=== PATIENT | female | born 1935 | race Caucasian/White ===

== ENCOUNTER 2017-12-24 12:50 | Outpatient (CLI) | payer MEDICARE ==
--- NOTE | 2017-12-24 13:18 | ULT ---
RENAL ULTRASOUND: HISTORY: Microhematuria. FINDINGS: Real-time imaging of the right and left kidneys was performed. The right kidney measures 10, and the left kidney measures 10.2 cm in size. There are no signs of cyst, mass, or obstruction. The bladde r is incompletely distended at the time of this exam. IMPRESSION: Unremarkable renal ultrasound. POS: [facility]
== END 2017-12-24 12:51 | disposition home or self-care (01) ==
LOC: BICULT 12:50
PROVIDERS: ATTEND Urology
DX: R31.29 Other microscopic hematuria (principal)
CPT/HCPCS: 76770

== ENCOUNTER 2018-09-22 11:11 | Emergency (ER) | payer MEDICARE | END 2018-09-22 11:40 | disposition home or self-care (01) | LOC: SCSER 11:11 | DX: R21 Rash and other nonspecific skin eruption (principal); F32.9 Major depressive disorder, single episode, unspecified; E03.9 Hypothyroidism, unspecified; I10 Essential (primary) hypertension; E78.5 Hyperlipidemia, unspecified; K50.90 Crohn's disease, unspecified, without complications; Z79.899 Other long term (current) drug therapy | CPT/HCPCS: 99282 ==

== ENCOUNTER 2020-04-16 12:20 | Inpatient (IN) | payer MEDICARE ==
[2020-04-16 13:28] LABS: #Basophils 0.1 thou/uL (0.0-0.2); #Eosinphils 0.1 thou/uL (0.0-0.7); #Lymphocytes 1.6 thou/uL (1.20-3.40); #Monocytes 1.2 thou/uL (0.11-0.59); #Neutrophils 8.3 thou/uL (1.40-6.50); %Basophils 0.5 % (0.0-1.0); %Eosinophils 0.5 % (0.0-10.0); %Lymphocytes 14.6 % (21.0-51.0); %Monocytes 10.5 % (0.0-10.0); %Neutrophils 73.9 % (42.0-75.0); Hemoglobin 12.7 g/dL (12.0-16.0); Mean Corpuscular Hemoglobin 29.1 pg (27.0-31.0); Mean Corpuscular Volume 90.9 fL (78.0-98.0); Mean Platelet Volume 7.9 fL (7.4-10.4); Platelet Count 167 thou/uL (130-400); RBC Distribution Width 11.7 % (11.5-14.5); Red Blood Cell (RBC) Count 4.36 mill/uL (4.20-5.40); White Blood Cell (WBC) Count 11.2 thou/uL (4.8-10.8)
[2020-04-16] MEDS ORDERED: Aspirin Chewable 81 MG TAB ONE (13:52)
[2020-04-16 14:07] LABS: ALT (SGPT) 13 U/L (8-55); AST (SGOT) 22 U/L (5-34); Albumin 3.8 g/dL (3.4-4.8); Alkaline Phosphatase 85 U/L (40-110); Anion Gap 14 mmol/L (10-20); BUN (Urea Nitrogen) 17 mg/dL (9.8-20.1); Bilirubin, Total 0.7 mg/dL (0.2-1.2); CK (CPK) 47 U/L (29-168); Calc. Creatinine Clearance 0 mL/min (70-130); Calcium 9.2 mg/dL (7.8-10.44); Carbon Dioxide 28 mmol/L (23-31); Chloride 100 mmol/L (98-107); Globulin 3.6 g/dL (2.4-3.5); Glucose 99 mg/dL (83-110); Lipase 138 U/L (8-78); Potassium 3.7 mmol/L (3.5-5.1); Protein, Total 7.4 g/dL (6.0-8.3); Sodium 138 mmol/L (136-145)
--- NOTE | 2020-04-16 14:09 | RAD ---
PORTABLE CHEST 1 VIEW: Date: 04/16/2020 Time: 1344 hours HISTORY: Chest pain. Shortness of breath. COMPARISON: None. FINDINGS/IMPRESSION: The heart size is normal. The aorta is tortuous. No lobar consolidation, pneumothoraces, or pleural e ffusions are seen. A small calcified granuloma is seen in the right lung base. Hazy opacities are not ed in the right lung. In the appropriate clinical setting, this may sales representative uniforms of viral pneumonia . POS: [facility]
[2020-04-16] MEDS ORDERED: Furosemide 40 MG/4 ML VIAL ONE (14:17)
[2020-04-16] MEDS ORDERED: Nitroglycerin 2% Ointment 1 INCH/1 GM Packet ONE (14:17)
[2020-04-16 15:25] LABS: Bacteria/HPF None Seen HPF (None Seen); Bilirubin Negative (Negative); Blood, Urine Trace (Negative); Clarity Clear (Clear); Glucose, Urine (Dipstick) Normal (Negative); Ketone, Urine Negative (Negative); Leukocyte 250 Leu/uL (Negative); Nitrite Negative (Negative); Protein, Urine (Dipstick) Negative (Neg-Trace); RBC/HPF 0-3 HPF (0-3); Specific Gravity, Urine 1.012 (1.002-1.036); Squamous Epithelial 0-3 HPF (0-3); Urobilinogen Normal mg/dL (Less than 2)
--- NOTE | 2020-04-16 15:42 | PDOC.HHP ---
Hospitalist HPI - History of Present Illness Chest pain History of Present Illness: Ms. Scott is an 85-year-old female with past medical history of coronary artery disease,, hypertension, hyperlipidemia, hypothyroidism, Crohn's disease, status post right CEA who presents for chest pain. Patient reports that over the past 2 weeks that she has had increasing frequency of chest pain episodes. Pain is at the left border of her rib and worse with deep inspiration. She reports pain lasts approximately 20 to 30 minutes and is improved when she takes her nitroglycerin. She reports shortness of breath during these episodes and also when exerting herself. She denies any shortness of breath at rest. She denies cough, fevers, chills. Denies abdominal pain, nausea vomiting diarrhea other than what is normal for her for her Crohn's disease. Denies melena, hematochezia. Patient follows with Dr. Garnett of cardiology. Emergency room initial vital signs 146/71, 56, 17, 99% on room air. Initial tr oponin 0 0.010. EKG showed sinus bradycardia with no ST changes. H/H 12.7/39.7. WBC 11.2. BUN/CR 17/0.82. Sodium 138, potassium 3.7. Hospitalist ROS - Review of Systems Constitutional: denies: fever, chills, sweats, weakness, malaise, other Eyes: denies: pain, vision change, conjunctivae inflammation, eyelid inflammation, redness, other ENT: denies: ear pain, ear discharge, nose pain, nose discharge, nose congestion, mouth pain, mouth swelling, throat pain, throat swelling, other Respiratory: reports: shortness of breath, SOB with excertion. denies: cough, dry, hemoptysis, pleuritic pain, sputum, wheezing, other Cardiovascular: reports: chest pain. denies: palpitations, orthopnea, paroxysmal noc. dyspnea, edema, light headedness, other Gastrointestinal: denies: nausea, vomiting, abdominal pain, diarrhea, constipation, melena, hematochezia, other Genitourinary: denies: dysuria, frequency, incontinence, hematuria, retention, other Musculoskeletal: denies: neck pain, shoulder pain, arm pain, back pain, hand pain, leg pain, foot pain, other Skin: denies: rash, lesions, charbel, bruising, other Neurological: denies: weakness, numbness, incoordination, change in speech, confusion, seizures, other - Medication Medications: Medications include Aspirin Atorvastatin Lisinopril Nitrostat No known allergies Hospitalist History - Past Medical History Other Medical History: Past medical history includes Hypertension Hyperlipidemia Hypothyroidism Crohn's disease - Past Surgical History Other Surgical History: Past surgical history includes Right CEA Appendectomy Partial thyroidectomy Hysterectomy - Family History Other Family History: Endorses family history of cardiac disease - Social History Smoking Status: Never smoker Alcohol: reports: None Drugs: reports: none Living Situation: With Family Activity level: independent ambulation - Exam Eye: PERRL, anicteric sclera ENT: normocephalic atraumatic, no oropharyngeal lesions, moist mucosa Neck: supple, symmetric, no JVD, no thyromegaly, no lymphadenopathy, no carotid bruit Heart: RRR, no murmur, no gallops, no rubs, normal peripheral pulses Respiratory: CTAB, no wheezes, no rales, no ronchi, normal chest expansion, no tachypnea, normal percussion Gastrointestinal: soft, non-tender, non-distended, normal bowel sounds, no palpable masses, no hepatomegaly, no splenomegaly, no bruit Extremities: no cyanosis, no clubbing, no edema Skin: normal turgor, no lesions, no rashes Neurological: cranial nerve grossly intact, normal sensation to touch, no weakness, no focal deficits, no new deficit Musculoskeletal: normal tone, normal strength, no muscle wasting Psychiatric: normal affect, normal behavior, A&O x 3 Hospitalist Results - Labs Result Diagrams: 04/16/20 13:15 04/16/20 13:15 Lab results: WBC 11.2 thou/uL (4.8-10.8) H 04/16/20 13:15 Hgb 12.7 g/dL (12.0-16.0) 04/16/20 13:15 Hct 39.7 % (36.0-47.0) 04/16/20 13:15 MCV 90.9 fL (78.0-98.0) 04/16/20 13:15 Plt Count 167 thou/uL (130-400) 04/16/20 13:15 Neutrophils % 73.9 % (42.0-75.0) 04/16/20 13:15 Sodium 138 mmol/L (136-145) 04/16/20 13:15 Potassium 3.7 mmol/L (3.5-5.1) 04/16/20 13:15 Chloride 100 mmol/L (98-107) 04/16/20 13:15 Carbon Dioxide 28 mmol/L (23-31) 04/16/20 13:15 BUN 17 mg/dL (9.8-20.1) 04/16/20 13:15 Creatinine 0.82 mg/dL (0.6-1.1) 04/16/20 13:15 Glucose 99 mg/dL (83-110) 04/16/20 13:15 Calcium 9.2 mg/dL (7.8-10.44) 04/16/20 13:15 Total Bilirubin 0.7 mg/dL (0.2-1.2) 04/16/20 13:15 AST 22 U/L (5-34) 04/16/20 13:15 ALT 13 U/L (8-55) 04/16/20 13:15 Alkaline Phosphatase 85 U/L (40-110) 04/16/20 13:15 Creatine Kinase 47 U/L (29-168) 04/16/20 13:15 Troponin I Less than 0.010 ng/mL (< 0.028) 04/16/20 13:15 B-Natriuretic Peptide 272.6 pg/mL (0-100) H 04/16/20 13:15 Serum Total Protein 7.4 g/dL (6.0-8.3) 04/16/20 13:15 Albumin 3.8 g/dL (3.4-4.8) 04/16/20 13:15 Lipase 138 U/L (8-78) H 04/16/20 13:15 Urine Ketones Negative mg/dL (Negative) 04/16/20 15:07 Urine Blood Trace (Negative) A 04/16/20 15:07 Urine Nitrite Negative (Negative) 04/16/20 15:07 Ur Leukocyte Esterase 250 [place]w/uL (Negative) A 04/16/20 15:07 Urine RBC 0-3 HPF (0-3) 04/16/20 15:07 Urine WBC 7-10 HPF (0-3) A 04/16/20 15:07 Ur Squamous Epith Cells 0-3 HPF (0-3) 04/16/20 15:07 Urine Bacteria None Seen HPF (None Seen) 04/16/20 15:07 Hospitalist H&P A/P - Plan Plan: Chest Pain 85-year-old female possible history hypertension, hyperlipidemia, hypothyroidism, Crohn's, status post right CEA presents with 2 weeks of worsening chest pain. Episodes last approximately 20 to 30 minutes or and are relieved by nitroglycerin. Initial troponin 0 0.010, EKG with no ischemic changes. Patient reports last stress test was approximately 2 years ago. She f tamirs with Dr. Llanes cardiology and request to see him if possible during admission. Will admit patient for chest pain rule out. Plan Trend troponin Telemetry monitoring N.p.o. at midnight for stress test ASA, statin TSH, magnesium, calcium Cardiology consult Hypertension Continue home atenolol. Hold if stress test in am. Hyperlipidemia Continue home atorvastatin Status post CEA Status post CEA with Dr. Younger in 2019. Patient takes daily aspirin. We will continue. Anxiety/depression Continue home SSRI once dosage confirmed. Hypothyroidism Continue home levothyroxine Crohn's disease History of Crohn's disease followed by Dr. Phelan. Patient reports she is on a weekly medication but unsure the name. Denies any abdominal pain, nausea pain vomiting diarrhea at this time. DVT prophylaxisLovenox DNR Case discussed with attending physician, Dr. Cook.
[2020-04-16] MEDS ORDERED: Acetaminophen 325 MG TAB PO PRN (15:47)
[2020-04-16] MEDS ORDERED: Acetaminophen 650 MG Suppository PR PRN (15:47)
[2020-04-16] MEDS ORDERED: Aspirin 325 MG TAB PO SCH (16:00)
[2020-04-16 16:53] LABS: Troponin I Less than 0.010 ng/mL (< 0.028)
[2020-04-16 19:44] LABS: Troponin I Less than 0.010 ng/mL (< 0.028)
[2020-04-16 22:45] LABS: SARS-CoV-2 PCR by NAA Not Detected (NotDetected)
[2020-04-16] MEDS: Atorvastatin Calcium 20 MG TAB PO SCH (22:48)
[2020-04-16] MEDS: Nitroglycerin 2% Ointment 1 INCH/1 GM Packet TOP SCH (22:48)
[2020-04-17 04:45] LABS: #Basophils 0.1 thou/uL (0.0-0.2); #Eosinphils 0.1 thou/uL (0.0-0.7); #Lymphocytes 2.2 thou/uL (1.20-3.40); #Monocytes 1.2 thou/uL (0.11-0.59); #Neutrophils 4.9 thou/uL (1.40-6.50); %Basophils 0.8 % (0.0-1.0); %Eosinophils 1.4 % (0.0-10.0); %Lymphocytes 25.9 % (21.0-51.0); %Monocytes 14.2 % (0.0-10.0); %Neutrophils 57.7 % (42.0-75.0); Hemoglobin 11.6 g/dL (12.0-16.0); Mean Corpuscular HGB CONC 33.8 g/dL (32.0-36.0); Mean Corpuscular Hemoglobin 30.5 pg (27.0-31.0); Mean Corpuscular Volume 90.2 fL (78.0-98.0); Mean Platelet Volume 8.5 fL (7.4-10.4); Platelet Count 149 thou/uL (130-400); RBC Distribution Width 11.6 % (11.5-14.5); Red Blood Cell (RBC) Count 3.81 mill/uL (4.20-5.40); White Blood Cell (WBC) Count 8.6 thou/uL (4.8-10.8)
[2020-04-17 05:21] LABS: Anion Gap 16 mmol/L (10-20); BUN (Urea Nitrogen) 21 mg/dL (9.8-20.1); Calc. Creatinine Clearance 0 mL/min (70-130); Calcium 9.2 mg/dL (7.8-10.44); Carbon Dioxide 27 mmol/L (23-31); Cardiac Risk 3.3 (Less than 4.5); Chloride 102 mmol/L (98-107); Cholesterol 119 mg/dl (< 200 Desired); Glucose 96 mg/dL (83-110); HDL Cholesterol 36 mg/dL (>60 Neg Risk); LDL Cholesterol, Calculated 59 mg/dL; Sodium 141 mmol/L (136-145); Triglycerides 119 mg/dL (Less than 150)
[2020-04-17] MEDS: Levothyroxine Sodium 112 MCG TAB PO SCH (06:30)
[2020-04-17] MEDS: Nitroglycerin 2% Ointment 1 INCH/1 GM Packet TOP SCH ×3 (06:31→21:04)
[2020-04-17] MEDS: Atorvastatin Calcium 20 MG TAB PO SCH ×2 (08:11→21:03)
[2020-04-17] MEDS: Aspirin Chewable 81 MG TAB PO SCH (08:12)
[2020-04-17] MEDS ORDERED: Enoxaparin Sodium 40 MG/0.4 ML SYRINGE SC SCH (09:00)
[2020-04-17] MEDS ORDERED: ADENOSINE 60 MG/20 ML VIAL ONE (09:46)
--- NOTE | 2020-04-17 11:12 | NM ---
Radionucleotide stress and rest myocardial perfusion scan with CT attenuation correction and SPECT im aging Left ventricular wall motion evaluation and ejection fraction HISTORY: Chest pain. FINDINGS: Adenosine protocol. Heterogeneous uptake of radiotracer throughout the left ventricular lucas cardium on the stress and rest images. Subjectively, there is diminished uptake involving the distal portion of the anteroseptal wall. Quantitative analysis, however, does not confirm this concer n. There is also good thickening and wall motion arguing against an infarct. Probable breast attenuation. Diaphragmatic attenuation also evident. No reversibility. QGS analysis of gated SPECT images shows no focal wall motion abnormalities. Ejection fraction calcul ated at greater than 80%. IMPRESSION : No evidence of acute ischemia. Normal LVEF.
[2020-04-17] MEDS: cefTRIAXone\\ROCEPHIN 1 GM in Sodium Chloride 0.9% 100 ML IVPB SCH (13:00)
--- NOTE | 2020-04-17 14:34 | PDOC.HOSPP ---
- Subjective Encounter Date: 04/17/20 Encounter Time: 14:33 Subjective: This is an 85-year-old patient of Dr. LOWERY from cardiology services who presented to the hospital with couple weeks onset of chest pain. She reports waxing and waning chest discomfort. The pain was relieved with nitroglycerin. She finally decided to present today for further evaluation. She has had a Cardiolite stress test that did not show any exercise-induced ischemia her marketing teacher is yet to see her. We will follow up with her marketing teacher recommendations. - Objective Vital Signs & Weight: Vital Signs (12 hours) Temp Pulse Resp BP Pulse Ox 04/17/20 11:00 97.7 F 77 16 132/60 99 04/17/20 07:53 96 04/17/20 07:20 98.0 F 56 L 16 109/53 L 96 04/17/20 04:00 99.1 F 54 L 16 109/56 L 99 Weight Weight 129 lb 4.55 oz I&O: 04/16/20 04/17/20 04/18/20 06:59 06:59 06:59 Intake Total 250 Output Total 300 Balance -50 Result Diagrams: 04/17/20 03:52 04/17/20 03:52 Radiology Reviewed by me: Yes EKG Reviewed by me: Yes Hospitalist ROS - Review of Systems ROS unobtainable: due to mental status Constitutional: reports: sweats, weakness Cardiovascular: reports: chest pain, palpitations Gastrointestinal: reports: nausea Neurological: reports: weakness - Medication Medications: Active Medications Generic Name Dose Route Start Last Admin Trade Name Freq PRN Reason Stop Dose Admin Aspirin 81 mg 04/17/20 09:00 04/17/20 08:12 Aspirin Chewable 81 Mg Tab PO 81 mg DAILY REMBERTO Administration Atorvastatin Calcium 20 mg 04/16/20 21:00 04/17/20 08:11 Atorvastatin Calcium 20 Mg Tab PO 20 mg BID REMBERTO Administration Enoxaparin Sodium 40 mg 04/17/20 09:00 04/17/20 08:12 Enoxaparin Sodium 40 Mg/0.4 Ml Syringe SC 40 mg 0900 REMBERTO Administration Ceftriaxone Sodium 1 gm/ 100 mls @ 200 mls/hr 04/17/20 13:00 04/17/20 13:00 Sodium Chloride IVPB 100 mls 1300 REMBERTO Administration Levothyroxine Sodium 112 mcg 04/17/20 06:00 04/17/20 06:30 Levothyroxine Sodium 112 Mcg Tab PO 112 mcg 0600 REMBERTO Administration Nitroglycerin 0.5 inch 04/16/20 22:00 04/17/20 13:00 Nitroglycerin 2% Ointment 1 Inch/1 Gm Packet TOP 0.5 inch Q8HR REMBERTO Administration Pantoprazole Sodium 40 mg 04/17/20 09:00 04/17/20 08:11 Pantoprazole 40 Mg Tab PO 40 mg QAM REMBERTO Administration Sodium Chloride 10 ml 04/16/20 15:47 04/16/20 22:49 Flush - Normal Saline 10 Ml Syringe IVF 10 ml PRN PRN Administration Saline Flush - Exam General Appearance: awake alert, ill appearing Eye: PERRL, anicteric sclera, scleral icterus ENT: normocephalic atraumatic, no oropharyngeal lesions Neck: supple, symmetric, no thyromegaly, no lymphadenopathy Heart: RRR, no murmur, no gallops, no rubs, normal peripheral pulses Respiratory: CTAB, no wheezes, no rales, no ronchi, normal chest expansion Gastrointestinal: soft, non-tender, non-distended, normal bowel sounds, no palpable masses Psychiatric: normal affect, normal behavior, A&O x 3, oriented to person Hosp A/P (1) Chest pain Code(s): R07.9 - CHEST PAIN, UNSPECIFIED Status: Acute Qualifiers: Chest pain type: chest pain due to myocardial ischemia Ischemic chest pain type: unstable angina pectoris Qualified Code(s): I20.0 - Unstable angina Plan: She reportedly has been having chest pain here for the last 2 weeks that progressively got worse. She had a stress test here that was read as normal. Her marketing teacher is here to visit with her. We will continue current management plan. (2) Hyperlipidemia Code(s): E78.5 - HYPERLIPIDEMIA, UNSPECIFIED Status: Acute Qualifiers: Hyperlipidemia type: mixed hyperlipidemia Qualified Code(s): E78.2 - Mixed hyperlipidemia - Plan old records reviewed/req, PT/OT
[2020-04-17] MEDS ORDERED: Communication Order-Pharmacy FS SCH (19:15)
--- NOTE | 2020-04-17 19:56 | CON ---
DATE OF CONSULTATION: 04/17/2020 REASON FOR CONSULTATION: Chest pain, pressure. HISTORY OF PRESENT ILLNESS: Ms. Irma Villagomez is a very pleasant woman with history of coronary artery disease with recurrent chest pressure and tightness. Ms. Villagomez initially presented with angina in 1993. She was found to have a stenosis in the right coronary artery, which was successfully balloon dilated. She re-presented with chest pain in 2004 and underwent cardiac catheterization and was found to have a 60% to 70% mid LAD with calcification. No obstructive stenosis in the circumflex or right coronary artery. The patient has really done well over the last 16 years, but yesterday, presented with chest pain and pressure at rest, which was prolonged. She is feeling better today. Stress test will be outlined below. ALLERGIES: NONE KNOWN. REVIEW OF SYSTEMS: CONSTITUTIONAL: Positive for some shortness of breath and weakness, but otherwise 12-point review of systems is negative. FAMILY HISTORY: Noncontributory. SOCIAL HISTORY: No alcohol or tobacco. PHYSICAL EXAMINATION: GENERAL: This is a pleasant 85-year-old woman, in no distress. VITAL SIGNS: Blood pressure 124/59, pulse 64 and regular. LUNGS: Clear. CARDIAC: Normal S1, normal S2. There is no murmur, rub, or gallop. ABDOMEN: Soft, nontender. No hepatosplenomegaly. EXTREMITIES: Warm and dry. No clubbing or cyanosis or edema. Good femoral pulses and popliteal pulses bilaterally. Good dorsalis pedis pulse on the right. IMAGING STUDIES: EKG; sinus rhythm with some ST depression, nonspecific in V5, V6 with sinus bradycardia. A stress test was read as no reversible ischemia, but it was noted that she had a fixed defect at the apex. ASSESSMENT: 1. Angina at rest. 2. Previous coronary artery disease with previous stent implantation. RECOMMENDATIONS: 1. In view of the prolonged episode of chest pressure in patient with known coronary artery disease, recommend a cardiac catheterization. Discussed the risk of stroke, heart attack, iodine allergy, interference of blood supply to leg or kidney, stent thrombosis, stent restenosis. The patient understands and wishes to proceed. 2. The patient also appears to have diastolic heart failure. The BNP is 272 with normal ejection fraction. This is diagnostic of diastolic heart failure. 3. Hypercholesterolemia, well controlled. LDL cholesterol is 59, primary hypercholesterolemia. Job ID: [id number]
[2020-04-18] MEDS ORDERED: Sodium Chloride 0.9% 1,000 ML IV SCH (06:00)
[2020-04-18] MEDS: Atorvastatin Calcium 20 MG TAB PO SCH ×2 (06:25→20:59)
[2020-04-18] MEDS: Levothyroxine Sodium 112 MCG TAB PO SCH (06:25)
[2020-04-18] MEDS: Aspirin Chewable 81 MG TAB PO SCH (06:25)
[2020-04-18] MEDS: Nitroglycerin 2% Ointment 1 INCH/1 GM Packet TOP SCH ×3 (06:25→20:59)
[2020-04-18] MEDS ORDERED: Fentanyl 100 MCG/2 ML VIAL ONE (08:06)
[2020-04-18] MEDS ORDERED: Nitroglycerin 100MG/250ML BOT 250 ML ONE (08:18)
[2020-04-18] MEDS ORDERED: Nitroglycerin 0.4 MG TAB (25 Tab Bottle) SL PRN (08:53)
[2020-04-18] MEDS ORDERED: Acetaminophen/Codeine 30-300mg Tablet PO PRN ×2 (08:53)
[2020-04-18] MEDS ORDERED: Sodium Chloride 0.9% 200 ML IV PRN (08:53)
[2020-04-18] MEDS ORDERED: Communication Order-Pharmacy FS SCH (10:35)
--- NOTE | 2020-04-18 11:51 | CON ---
DATE OF CONSULTATION: HISTORY OF PRESENT ILLNESS: This is an 85-year-old female who has a history of coronary artery disease, having undergone a [employer] C[employer] MANAGER of the right coronary artery about 25 years ago. She was re-evaluated several years ago for chest pain and found to have noncritical coronary artery disease, however, was admitted this week with prolonged episode of chest pain with negative cardiac enzyme. Stress test was significant only for fixed apical defect, and catheterization done today showed a heavily calcified right coronary artery with a 99% mid stenosis and then heavily calcified LAD with about 70% stenosis after a sizable diagonal system and then some intramyocardial LAD that was rather small. PAST MEDICAL HISTORY: Significant for: 1. Hypertension. 2. Hypothyroidism. 3. Carotid artery disease. 4. Dyslipidemia. SOCIAL HISTORY: She is a nonsmoker. She lives with a nephew. PAST SURGICAL HISTORY: 1. Right knee replacement. 2. Appendectomy. 3. Hysterectomy. 4. Partial thyroidectomy. 5. Right submandibular gland removal. 6. Most recently about 4 years ago, a right carotid endarterectomy. PHYSICAL EXAMINATION: GENERAL: She is an elderly-appearing lady, height 5 feet 5 inches and weight 129. NECK: I do not appreciate any carotid bruits. LUNGS: Clear to auscultation. CARDIAC: Regular rate and rhythm with a very soft systolic murmur. ABDOMEN: Soft and nontender. EXTREMITIES: She has palpable femoral and popliteal pulses and I do not appreciate any pedal pulses. She has no peripheral edema. LABORATORY VALUES: She has slight anemia. Normal creatinine. Her chest x-ray shows osteopenia, relatively unremarkable. As mentioned, her stress test showed normal ejection fraction with no reversible defects, but distal anterior septal wall with poor uptake and fixed defect. PLAN: At this time is for coronary artery bypass grafting to the distal right coronary artery into the mid or distal LAD, and informed consent has been obtained. Job ID: [id number]
[2020-04-18] MEDS ORDERED: Iopamidol 370 76% 100 ML VIAL ONE (12:19)
[2020-04-18] MEDS: cefTRIAXone\\ROCEPHIN 1 GM in Sodium Chloride 0.9% 100 ML IVPB SCH (13:23)
--- NOTE | 2020-04-18 16:42 | PQF ---
CLINICAL DOCUMENTATION CLARIFICATION FORM: Dear Dr. JUAN COREA Date: 04-18-20 Please exercise your independent, professional judgment in responding to the clarification form. Clinical indicators are provided on the bottom of this form for your review. Please check appropriate box(es): HEART FAILURE: A. ACUITY [ ] Acute [ ] Acute on Chronic [ x] Chronic B. TYPE: [ ] Systolic / HFrEF [ x ] Diastolic / HFpEF [ ] Combined Systolic / Diastolic [ ] Hypertensive Heart Disease : [ ] Other diagnosis [ ] Unable to determine In addition, please specify: Present on Admission (POA): [ x ] Yes [ ] No [ ] Unable to determine For continuity of documentation, please document condition throughout progress notes and discharge summary. Thank You. To be completed by CDI/Coding staff for physician review: CLINICAL INDICATORS - SIGNS / SYMPTOMS / LABS / RESULTS AND LOCATION IN EMR: ER NOTES 04-16-20: WORSENING EXERTIONAL CP AND SOB ER DX 04-16-20: CHEST PAIN R/O OR, CHF CONSULT NOTE DR. LOWERY 04-17-20: PT APPEARS TO HAVE DIASTOLIC HEART FAILURE. THE BNP IS 272 WITH NORMAL EJECTION FRACTION. THIS IS DIAGNOSTIC OF DIASTOLIC HEART FAILURE RISKS FACTORS / RESULTS AND LOCATION IN EMR: H&P 04-16-20: HX CAD, HTN, HYPERLIPIDEMIA TREATMENTS / RESULTS AND LOCATION IN EMR: ER NOTES 04-16-20: [facility] IVP CARDIOLOGY CONSULT 04-17-20 CDS Signature: Cayla Dodson Phone #: [phone] Date: 04-18-20 This is a permanent part of the Medical Record [facility]
--- NOTE | 2020-04-18 17:48 | PDOC.HOSPP ---
- Subjective Encounter Date: 04/18/20 Encounter Time: 17:46 Subjective: Patient had a LHC today and found to have LAD and RCA. disease. CT surgery consulted for CABG considerations. She is chest pain free today. - Objective Vital Signs & Weight: Vital Signs (12 hours) Temp Pulse Resp BP BP BP Pulse Ox 04/18/20 15:22 97.7 F 80 15 140/63 99 04/18/20 11:19 98.2 F 64 16 160/65 H 95 04/18/20 09:05 97.9 F 62 16 133/65 133/65 94 L 04/18/20 07:27 96 04/18/20 07:12 97.6 F 68 16 134/60 99 Weight Admit Weight 129 lb 4.55 oz Weight 129 lb 4.55 oz I&O: 04/17/20 04/18/20 04/19/20 06:59 06:59 06:59 Intake Total 250 820 Output Total 300 Balance -50 820 Result Diagrams: 04/17/20 03:52 04/17/20 03:52 Radiology Reviewed by me: Yes EKG Reviewed by me: Yes Hospitalist ROS - Review of Systems Constitutional: reports: weakness, malaise ENT: reports: ear discharge Cardiovascular: reports: chest pain, palpitations Neurological: reports: weakness - Medication Medications: Active Medications Generic Name Dose Route Start Last Admin Trade Name Freq PRN Reason Stop Dose Admin Acetaminophen 650 mg 04/16/20 15:47 04/17/20 16:47 Acetaminophen 325 Mg Tab PO 650 mg Q4H PRN Administration Headache/Fever/Mild Pain (1-3) Aspirin 81 mg 04/17/20 09:00 04/18/20 06:25 Aspirin Chewable 81 Mg Tab PO 81 mg DAILY REMBERTO Administration Atorvastatin Calcium 20 mg 04/16/20 21:00 04/18/20 06:25 Atorvastatin Calcium 20 Mg Tab PO 20 mg BID REMBERTO Administration Ceftriaxone Sodium 1 gm/ 100 mls @ 200 mls/hr 04/17/20 13:00 04/18/20 13:23 Sodium Chloride IVPB 100 mls 1300 REMBERTO Administration Levothyroxine Sodium 112 mcg 04/17/20 06:00 04/18/20 06:25 Levothyroxine Sodium 112 Mcg Tab PO 112 mcg 0600 REMBERTO Administration Nitroglycerin 0.5 inch 04/16/20 22:00 04/18/20 13:23 Nitroglycerin 2% Ointment 1 Inch/1 Gm Packet TOP 0.5 inch Q8HR REMBERTO Administration Pantoprazole Sodium 40 mg 04/17/20 09:00 04/18/20 06:25 Pantoprazole 40 Mg Tab PO 40 mg QAM REMBERTO Administration Sodium Chloride 10 ml 04/16/20 15:47 04/16/20 22:49 Flush - Normal Saline 10 Ml Syringe IVF 10 ml PRN PRN Administration Saline Flush - Exam General Appearance: awake alert ENT: normocephalic atraumatic, no oropharyngeal lesions Neck: supple, symmetric, no JVD, no thyromegaly Heart: RRR, no murmur, no gallops, no rubs, normal peripheral pulses Respiratory: CTAB, no wheezes, no rales, no ronchi, normal chest expansion Gastrointestinal: soft, non-tender, non-distended, normal bowel sounds Neurological: cranial nerve grossly intact Psychiatric: normal affect, normal behavior, A&O x 3 Hosp A/P (1) 2-vessel coronary artery disease Code(s): I25.10 - ATHSCL HEART DISEASE OF [place] CORONARY ARTERY W/O ANG PCTRS Status: Acute Plan: Plan for CABG in the near future. (2) Chest pain Code(s): R07.9 - CHEST PAIN, UNSPECIFIED Status: Acute Qualifiers: Chest pain type: chest pain due to myocardial ischemia Ischemic chest pain type: unstable angina pectoris Qualified Code(s): I20.0 - Unstable angina (3) Hyperlipidemia Code(s): E78.5 - HYPERLIPIDEMIA, UNSPECIFIED Status: Acute Qualifiers: Hyperlipidemia type: mixed hyperlipidemia Qualified Code(s): E78.2 - Mixed hyperlipidemia - Plan old records reviewed/req, plan discussed w/ family 04/18/2020. The patient is planned for CABG in the near future. I will defer to the cardiothoracic surgeons about timing of said procedure. She is completely chest pain-free today.
[2020-04-18] MEDS ORDERED: Enoxaparin Sodium 60 MG/0.6 ML SYRINGE SC SCH (20:00)
[2020-04-18] MEDS ORDERED: Enoxaparin Sodium 40 MG/0.4 ML SYRINGE SC SCH (20:00)
[2020-04-19] MEDS: Levothyroxine Sodium 112 MCG TAB PO SCH (05:14)
[2020-04-19] MEDS: Nitroglycerin 2% Ointment 1 INCH/1 GM Packet TOP SCH (05:31)
[2020-04-19] MEDS ORDERED: Albumin 5% 500 ML ONE (06:27)
[2020-04-19] MEDS ORDERED: Heparin 10,000 UNITS/1 ML VIAL 30,000 UNITS in Sodium Chloride 0.9% 1,000 ML FS SCH (06:30)
[2020-04-19] MEDS ORDERED: Fentanyl 250 MCG/5 ML VIAL ONE (06:48)
[2020-04-19] MEDS ORDERED: Midazolam HCl 5 mg/5 ml Vial ONE (06:48)
[2020-04-19] MEDS ORDERED: Dexmedetomidine 200 MCG/2 ML VIAL ONE (06:48)
[2020-04-19] MEDS ORDERED: Midazolam HCl 2 mg/2 ml Vial ONE (07:01)
[2020-04-19] MEDS ORDERED: Lidocaine 1% PF 5 ML VIAL ONE (09:19)
[2020-04-19] MEDS ORDERED: Glycopyrrolate 0.2 MG/ML 5 ML SYRINGE ONE (09:19)
[2020-04-19] MEDS ORDERED: Calcium Chloride 1 GM/10 ML Abboject SYRINGE ONE (09:19)
[2020-04-19] MEDS ORDERED: Ondansetron PF 4 MG/2 ML Vial ONE (09:19)
[2020-04-19] MEDS ORDERED: Dexamethasone 20 MG/5 ML VIAL ONE (09:19)
[2020-04-19] MEDS ORDERED: Cardioplegic Soln 1,000 ML BAG ONE (09:19)
[2020-04-19] MEDS ORDERED: PROPOFOL 200 MG/20 ML VIAL ONE (09:19)
[2020-04-19] MEDS ORDERED: Thrombin 5000 UNITS/5 ML VIAL ONE (09:19)
[2020-04-19] MEDS ORDERED: Heparin 5,000 UNITS/ML VIAL ONE (09:19)
[2020-04-19] MEDS ORDERED: Nitroglycerin 50 MG/250 ML BOT ONE (09:19)
[2020-04-19] MEDS ORDERED: Lidocaine 2% PF 100 mg/5 ml Syringe ONE (09:19)
[2020-04-19] MEDS ORDERED: Vecuronium 10 MG VIAL ONE (09:19)
[2020-04-19] MEDS ORDERED: Aminocaproic Acid 5 GM/20 ML VIAL ONE (09:19)
[2020-04-19] MEDS ORDERED: Sodium Bicarb 50 MEQ/50 ML Abboject 8.4% SYRINGE ONE (09:19)
[2020-04-19] MEDS ORDERED: Mannitol 12.5 GM/50 ML ONE (09:19)
[2020-04-19] MEDS ORDERED: Papaverine 60 MG/2 ML VIAL ONE (09:19)
[2020-04-19] MEDS ORDERED: Protamine Sulfate 250 MG/25 ML VIAL ONE (09:19)
[2020-04-19] MEDS ORDERED: Magnesium Sulfate 1 GM/2 ML VIAL ONE (09:19)
[2020-04-19] MEDS ORDERED: Norepinephrine 4 MG/4 ML VIAL ONE (09:19)
[2020-04-19] MEDS ORDERED: Potassium Chloride 60 MEQ/30 ML VIAL ONE (09:19)
[2020-04-19] MEDS ORDERED: Heparin 30,000 units/30 ml VIAL ONE (09:19)
[2020-04-19] MEDS ORDERED: hydrALAZINE 20 MG/ML VIAL SLOW IVP PRN (10:41)
[2020-04-19] MEDS ORDERED: Guaifenesin DM 100-10/5 ML UDCUP PO PRN (10:41)
[2020-04-19] MEDS ORDERED: DOPamine 400 MG/D5W 250 ML 250 ML IVPB PRN (10:41)
[2020-04-19] MEDS ORDERED: Acetaminophen 325 MG TAB PO PRN (10:41)
[2020-04-19] MEDS ORDERED: Fentanyl 100 MCG/2 ML VIAL SLOW IVP PRN ×2 (10:41)
[2020-04-19] MEDS ORDERED: Post-Op Insulin Drip Protocol IVPB ONE (10:41)
[2020-04-19] MEDS ORDERED: Bisacodyl 10 MG SUPP PR PRN (10:41)
[2020-04-19] MEDS ORDERED: Ondansetron PF 4 MG/2 ML Vial IVP PRN (10:41)
[2020-04-19] MEDS ORDERED: niCARdipine 25 MG in Sodium Chloride 0.9% 250 ML 250 ML IVPB PRN (10:41)
[2020-04-19] MEDS ORDERED: Bisacodyl 5 MG TAB PO PRN (10:41)
[2020-04-19] MEDS ORDERED: Promethazine HCl 25 MG/ML VIAL IM PRN (10:41)
[2020-04-19] MEDS ORDERED: Hetastarch 6% 500 ML 500 ML IVPB PRN (10:41)
[2020-04-19] MEDS ORDERED: Mag-Al 1200 mg/1200 mg/30 ML UDCUP PO PRN (10:41)
[2020-04-19] MEDS ORDERED: Morphine 2 MG/ML VIAL SLOW IVP PRN (10:41)
[2020-04-19] MEDS ORDERED: Nitroglycerin 50 MG/250 ML BOT 250 ML IVPB PRN (10:41)
[2020-04-19] MEDS ORDERED: Norepinephrine 8 MG/0.9% NS 250 ML IVPB PRN (10:41)
--- NOTE | 2020-04-19 11:14 | OP ---
DATE OF PROCEDURE: 04/19/2020 PREOPERATIVE DIAGNOSIS: Coronary artery disease. PROCEDURE PERFORMED: Coronary artery bypass graft x2, good quality RODRIGUEZ to a 1.5 mm LAD, good quality vein to a 1.5 to 2 mm right coronary artery past the acute margin of the heart. MEASUREMENT AND VERIFICATION ENGINEER: Dr. Cherry. TRANSFUSION: 2 units of packed red cells. DESCRIPTION OF PROCEDURE: After adequate anesthesia had been obtained, the patient was prepped and draped and Dr. Cherry did an open vein harvest of the left greater saphenous vein while I performed a median sternotomy. The pericardium was opened and the aorta lied to the right of the midline, but was palpably soft. Following a left internal mammary artery harvest, the patient was heparinized. The mammary divided distally and lied anterior to the longus, there was minimal to no thymic gland. The LAD was clearly visible through the sternotomy with the heart lying in the pericardial well. After aortic and right atrial cannulation, cardiopulmonary bypass was begun. Aorta crossclamped and a liter of cold blood cardioplegia given through the aortic root. The right coronary was opened and saphenous vein anastomosed here, passing 1.5 mm probe prior to tying the suture line. Following completion of this, the LAD was opened in its midportion and RODRIGUEZ to LAD anastomosis completed. Following this, mammary pedicle was secured to the myocardium and the vent needle was removed and punch in the aorta was carried out and the right coronary vein graft was anastomosed here with a running suture and marked with a ring. The cross-clamp was removed. Following which, the patient was fully rewarmed and weaned from cardiopulmonary bypass. The cannulas were removed and the aortic cannulation site secured with a 4-0 Prolene suture. Distal anastomosis and proximal anastomosis were checked and were hemostatic. Mediastinal drains x2 were placed, following which the sternum was reapproximated with #7 interrupted wire using vancomycin paste on the sternal edges, platelet-rich blood and platelet-poor plasma. Subcutaneous tissue and skin were closed in layers. Job ID: [id number]
[2020-04-19] MEDS ORDERED: HUMULIN R 100 UNITS in Sodium Chloride 0.9% 100 ML IVPB SCH (11:15)
[2020-04-19] MEDS ORDERED: Dextrose 5% in Water 1,000 ML IV PRN (11:15)
[2020-04-19] MEDS ORDERED: Insulin Regular 300 UNITS/3 ML VIAL SC PRN (11:15)
[2020-04-19] MEDS ORDERED: Dextrose 50% Abboject 50 ML SYRINGE SLOW IVP PRN (11:15)
--- NOTE | 2020-04-19 11:58 | RAD ---
Portable frontal chest radiograph: 04/19/2020 COMPARISON: 04/16/2020 HISTORY: Evaluate chest following open heart surgery FINDINGS: New midline sternotomy wires are noted. There is a right vascular catheter with distal tip overlying the region of the inferior right atrium. Post operative drainage catheters overlie the midline mediastinum and the inferior lateral left heart border. There is nonspecific patchy airspace disease in the mid right lung zone, nonspecific. No pneumothorax or large volume pleural effusion. No evidence for pulmonary edema. IMPRESSION: Interval midline sternotomy. Lines and tubes as detailed above. Nonspecific hazy groundglass opacity in the mid right lung zone for which follow-up is advised.
[2020-04-19] MEDS: Lactated Ringer's 1,000 ML IV SCH (12:09)
[2020-04-19] MEDS: Aspirin Chewable 81 MG TAB PO SCH (12:10)
[2020-04-19] MEDS: Ketorolac Tromethamine 30 MG/ML VIAL IVP SCH ×2 (12:11→17:32)
[2020-04-19] MEDS: cefTRIAXone\\ROCEPHIN 1 GM in Sodium Chloride 0.9% 100 ML IVPB SCH (12:12)
[2020-04-19 12:20] LABS: #Eosinphils 0.1 thou/uL (0.0-0.7); #Lymphocytes 1.2 thou/uL (1.20-3.40); #Monocytes 0.6 thou/uL (0.11-0.59); #Neutrophils 13.2 thou/uL (1.40-6.50); %Basophils 0.3 % (0.0-1.0); %Eosinophils 0.5 % (0.0-10.0); %Lymphocytes 7.8 % (21.0-51.0); %Monocytes 3.7 % (0.0-10.0); %Neutrophils 87.6 % (42.0-75.0); Hemoglobin 12.1 g/dL (12.0-16.0); Mean Corpuscular HGB CONC 33.6 g/dL (32.0-36.0); Mean Corpuscular Volume 92.2 fL (78.0-98.0); Mean Platelet Volume 7.9 fL (7.4-10.4); Platelet Count 103 thou/uL (130-400); RBC Distribution Width 12.1 % (11.5-14.5); White Blood Cell (WBC) Count 15.1 thou/uL (4.8-10.8)
[2020-04-19 12:21] LABS: INR-International Normal Ratio 1.3; Prothrombin Time 16.7 sec (12.0-14.7)
[2020-04-19 12:22] LABS: PTT 37.7 sec (22.9-36.1)
[2020-04-19 12:29] LABS: Anion Gap 14 mmol/L (10-20); BUN (Urea Nitrogen) 10 mg/dL (9.8-20.1); Calc. Creatinine Clearance 66 mL/min (70-130); Carbon Dioxide 23 mmol/L (23-31); Chloride 112 mmol/L (98-107); Glucose 169 mg/dL (83-110); Potassium 3.7 mmol/L (3.5-5.1); Sodium 145 mmol/L (136-145)
[2020-04-19 12:43] LABS: Platelet Morphology Comment Appears Decreased; RBC Morphology Normal
[2020-04-19] MEDS: Potassium Chloride 20 MEQ/100 ML PREMIX BAG IVPB PRN ×2 (13:20→17:32)
--- NOTE | 2020-04-19 15:18 | PDOC.HOSPP ---
- Subjective Encounter Date: 04/19/20 Encounter Time: 15:17 Subjective: Saw and evaluated patient shortly after CABG. She was pretty sleepy. - Objective Vital Signs & Weight: Vital Signs (12 hours) Temp Pulse Resp BP Pulse Ox 04/19/20 12:00 97.2 F L 04/19/20 11:54 100 04/19/20 07:44 96 04/19/20 05:01 97.7 F 63 16 136/62 96 Weight Admit Weight 129 lb 4.55 oz Weight 129 lb 4.55 oz Most Recent Monitor Data Heart Rate from ECG 95 NIBP 87/66 NIBP BP-Mean 73 Respiration from ECG 19 SpO2 100 I&O: 04/18/20 04/19/20 04/20/20 06:59 06:59 06:59 Intake Total 820 1610 500 Output Total 870 Balance 820 1610 -370 Result Diagrams: 04/20/20 03:40 04/20/20 03:30 Additional Labs: Accuchecks 04/19/20 04/19/20 04/19/20 14:44 13:47 11:37 POC Glucose 131 H 142 H 160 H 04/19/20 09:23 POC Glucose 134 H Radiology Reviewed by me: Yes EKG Reviewed by me: Yes Hospitalist ROS - Review of Systems ROS unobtainable: due to mental status Constitutional: reports: weakness, malaise Respiratory: reports: shortness of breath, SOB with excertion Gastrointestinal: reports: nausea Neurological: reports: weakness, numbness - Medication Medications: Active Medications Generic Name Dose Route Start Last Admin Trade Name Freq PRN Reason Stop Dose Admin Albumin Human 12.5 gm 04/19/20 10:41 04/19/20 14:01 Albumin 5% 12.5 Gm/250 Ml Bot IVPB 04/20/20 10:42 12.5 gm Q6H PRN Administration To Maintain SBP> 90 mmHG Aspirin 81 mg 04/17/20 09:00 04/19/20 12:10 Aspirin Chewable 81 Mg Tab PO Not Given DAILY REMBERTO Ceftriaxone Sodium 1 gm/ 100 mls @ 200 mls/hr 04/17/20 13:00 04/19/20 12:12 Sodium Chloride IVPB 100 mls 1300 REMBERTO Administration Lactated Ringer's 1,000 mls @ 70 mls/hr 04/19/20 10:45 04/19/20 12:09 Lactated Ringer's IV Not Given .[id number] REMBERTO Insulin Human Regular 100 101 mls @ 0 mls/hr 04/19/20 11:15 04/19/20 12:45 units/ Sodium Chloride IVPB 101 mls INF REMBERTO Administration Protocol As Directed Ketorolac Tromethamine 15 mg 04/19/20 12:00 04/19/20 12:11 Ketorolac Tromethamine 30 Mg/Ml Vial IVP 04/20/20 12:01 15 mg Q6HR REMBERTO Administration Levothyroxine Sodium 112 mcg 04/17/20 06:00 04/19/20 05:14 Levothyroxine Sodium 112 Mcg Tab PO 112 mcg 0600 REMBERTO Administration Potassium Chloride 20 meq 04/19/20 10:41 04/19/20 13:20 Potassium Chloride 20 Meq/100 Ml Premix Bag IVPB 20 meq PRN PRN Administration K level </= 4.0 - Exam General Appearance: NAD, ill appearing Eye: PERRL, anicteric sclera ENT: normocephalic atraumatic, no oropharyngeal lesions Neck: supple, symmetric, no JVD, no thyromegaly Heart: RRR, no murmur, no gallops, no rubs, normal peripheral pulses Respiratory: CTAB, no rales Gastrointestinal: soft, non-tender, non-distended, normal bowel sounds Neurological: cranial nerve grossly intact Psychiatric: normal affect, normal behavior, A&O x 3 Hosp A/P (1) 2-vessel coronary artery disease Code(s): I25.10 - ATHSCL HEART DISEASE OF [place] CORONARY ARTERY W/O ANG PCTRS Status: Acute (2) Chest pain Code(s): R07.9 - CHEST PAIN, UNSPECIFIED Status: Acute Qualifiers: Chest pain type: chest pain due to myocardial ischemia Ischemic chest pain type: unstable angina pectoris Qualified Code(s): I20.0 - Unstable angina (3) Hyperlipidemia Code(s): E78.5 - HYPERLIPIDEMIA, UNSPECIFIED Status: Acute Qualifiers: Hyperlipidemia type: mixed hyperlipidemia Qualified Code(s): E78.2 - Mixed hyperlipidemia - Plan old records reviewed/req, out of bed/ambulate 04/18/2020. The patient is planned for CABG in the near future. I will defer to the cardiothoracic surgeons about timing of said procedure. She is completely chest pain-free today. . Patient just got back from two-vessel bypass surgery. She is sleepy. Hemodynamically she seems to be stable. We will continue routine postop care.
[2020-04-19 16:47] LABS: Hemoglobin 10.1 g/dL (12.0-16.0)
[2020-04-19] MEDS: traMADol HCl 50 MG TAB PO PRN (19:58)
[2020-04-19] MEDS: Famotidine/PF 20 mg/2ml Vial SLOW IVP SCH (20:05)
[2020-04-20] MEDS: Ketorolac Tromethamine 30 MG/ML VIAL IVP SCH ×2 (00:24→07:21)
[2020-04-20] MEDS: traMADol HCl 50 MG TAB PO PRN ×4 (03:47→20:13)
[2020-04-20 04:54] LABS: #Lymphocytes 0.7 thou/uL (1.20-3.40); #Monocytes 0.9 thou/uL (0.11-0.59); #Neutrophils 9.3 thou/uL (1.40-6.50); %Basophils 0.4 % (0.0-1.0); %Eosinophils 0.1 % (0.0-10.0); %Lymphocytes 6.7 % (21.0-51.0); %Monocytes 7.9 % (0.0-10.0); Hemoglobin 7.8 g/dL (12.0-16.0); Mean Corpuscular HGB CONC 33.6 g/dL (32.0-36.0); Mean Corpuscular Hemoglobin 31.1 pg (27.0-31.0); Mean Corpuscular Volume 92.6 fL (78.0-98.0); Mean Platelet Volume 8.4 fL (7.4-10.4); Platelet Count 81 thou/uL (130-400); RBC Distribution Width 11.9 % (11.5-14.5); Red Blood Cell (RBC) Count 2.49 mill/uL (4.20-5.40)
[2020-04-20 05:11] LABS: Anion Gap 14 mmol/L (10-20); BUN (Urea Nitrogen) 12 mg/dL (9.8-20.1); Calc. Creatinine Clearance 68 mL/min (70-130); Calcium 7.2 mg/dL (7.8-10.44); Carbon Dioxide 18 mmol/L (23-31); Chloride 112 mmol/L (98-107); Glucose 119 mg/dL (83-110); Potassium 4.1 mmol/L (3.5-5.1); Sodium 140 mmol/L (136-145)
[2020-04-20] MEDS: Lactated Ringer's 1,000 ML IV SCH ×3 (05:39→20:13)
[2020-04-20] MEDS: Levothyroxine Sodium 112 MCG TAB PO SCH (05:49)
--- NOTE | 2020-04-20 06:29 | PRG ---
DATE OF SERVICE: 04/20/2020 The patient has been hemodynamically stable overnight, requiring low-dose Levophed at about 3 mcg. Blood pressure is about 110 this morning, heart rate in the 70s, sinus rhythm. Her chest tube is at about 450 total output since surgery. Her chest x-ray is clear bilaterally. Urine output is low. Hemoglobin has drifted to about 7.8 g from 12 postop from 10 last evening. She is awake and alert. Neurologically intact. No complaints and feels well. Her lungs have some pericardial scratching on auscultation on the left and clear on the right. Plan at this time is to transfuse 1 unit of packed red cells today and then as tolerated. Stop the Levophed and IV fluids. Job ID: [id number]
[2020-04-20] MEDS ORDERED: Sodium Chloride 0.9% 500 ML IV SCH (08:30)
--- NOTE | 2020-04-20 08:33 | PRG ---
DATE OF SERVICE: 04/20/2020 SUBJECTIVE: Ms. Villagomez is sitting up in bed. She said she feels well. She is still on low-dose Levophed and receiving one unit of packed red blood cells. OBJECTIVE: VITAL SIGNS: Her blood pressure 119/86, pulse in the 90s and sinus. LUNGS: Clear. CARDIAC: Normal S1, normal S2. There is no murmur, rub, or gallop. ABDOMEN: Soft, nontender. EXTREMITIES: Warm, dry. No clubbing. No cyanosis or edema. ASSESSMENT: 1. Coronary artery disease status post bypass surgery for two-vessel coronary artery disease with calcification, has relatively low blood pressure. 2. Anemia. PLAN: 1. She is to receive normal saline 500 mL bolus. 2. Try to wean Levophed. 3. Receiving packed red blood cells. The patient is doing very well. Job ID: [id number]
--- NOTE | 2020-04-20 08:42 | RAD ---
PORTABLE CHEST: HISTORY: Postop sternotomy. COMPARISON: 04/19/2020. FINDINGS: Cardiomegaly with postop sternotomy change. Drainage tubes. Central line has tip overlying the righ t atrium. Hazy infiltrate in the right upper lung appears stable. Mild interstitial prominence is u nchanged. No evidence of vascular congestion. Small effusions may be present. IMPRESSION: Chest findings showed no significant interval change from yesterday. POS: OFF
[2020-04-20] MEDS: Aspirin Chewable 81 MG TAB PO SCH (08:52)
[2020-04-20] MEDS: FLUoxetine HCl 20 MG CAP PO SCH (08:52)
[2020-04-20] MEDS: Famotidine/PF 20 mg/2ml Vial SLOW IVP SCH (08:52)
[2020-04-20] MEDS: Polyethylene Glycol 3350 17 GM Packet PO SCH (08:52)
[2020-04-20] MEDS: cefTRIAXone\\ROCEPHIN 1 GM in Sodium Chloride 0.9% 100 ML IVPB SCH (12:08)
--- NOTE | 2020-04-20 12:36 | EKG ---
Test Reason : S/P CABG Blood Pressure : / mmHG Vent. Rate : 081 BPM Atrial Rate : 081 BPM P-R Int : 154 ms QRS Dur : 072 ms QT Int : 462 ms P-R-T Axes : 011 011 -28 degrees QTc Int : 536 ms Normal sinus rhythm Nonspecific ST and T wave abnormality Prolonged QT Abnormal ECG Confirmed by ANN ZAIDI ([id number]) on 04/20/2020 12:35:34 PM Referred By: SONY Confirmed By:ANN ZAIDI
--- NOTE | 2020-04-20 13:45 | PDOC.HOSPP ---
- Subjective Encounter Date: 04/20/20 Encounter Time: 13:43 Subjective: Patient underwent two-vessel bypass surgery. She is already extubated and is doing very well. Today on exam her blood pressure was marginally low. She is awake and alert and answered all questions and neurologically intact. We will begin the process of mobilization. - Objective Vital Signs & Weight: Vital Signs (12 hours) Temp Pulse Ox 04/20/20 10:00 97.9 F 04/20/20 07:28 97 04/20/20 07:00 97.7 F 04/20/20 06:40 98.0 F 04/20/20 06:24 97.8 F 04/20/20 04:15 100 04/20/20 04:00 97.9 F Weight Admit Weight 129 lb 4.55 oz Weight 144 lb 2.917 oz Most Recent Monitor Data Heart Rate from ECG 88 NIBP 118/56 NIBP BP-Mean 76 Respiration from ECG 15 SpO2 93 I&O: 04/19/20 04/20/20 04/21/20 06:59 06:59 06:59 Intake Total 1610 3743.5 850 Output Total 1575 185 Balance 1610 2168.5 665 Result Diagrams: 04/20/20 03:40 04/20/20 03:30 Additional Labs: Accuchecks 04/20/20 04/20/20 04/20/20 05:30 04:02 03:06 POC Glucose 107 H 115 H 95 04/20/20 04/20/20 04/20/20 02:04 01:08 00:21 POC Glucose 91 95 111 H 04/19/20 04/19/20 04/19/20 23:04 22:08 21:17 POC Glucose 112 H 119 H 125 H 04/19/20 04/19/20 04/19/20 20:14 19:17 18:05 POC Glucose 128 H 126 H 114 H 04/19/20 04/19/20 04/19/20 16:51 15:55 14:44 POC Glucose 106 H 110 H 131 H 04/19/20 04/19/20 04/19/20 13:47 13:12 10:49 POC Glucose 142 H 158 H 132 H 04/19/20 04/19/20 04/19/20 09:59 09:03 08:38 POC Glucose 109 H 112 H 97 04/19/20 08:01 POC Glucose 84 Radiology Reviewed by me: Yes EKG Reviewed by me: Yes Hospitalist ROS - Review of Systems Constitutional: reports: weakness, malaise Respiratory: reports: cough, shortness of breath Neurological: reports: weakness - Medication Medications: Active Medications Generic Name Dose Route Start Last Admin Trade Name Freq PRN Reason Stop Dose Admin Aspirin 81 mg 04/17/20 09:00 04/20/20 08:52 Aspirin Chewable 81 Mg Tab PO 81 mg DAILY REMBERTO Administration Fluoxetine HCl 20 mg 04/20/20 09:00 04/20/20 08:52 Fluoxetine Hcl 20 Mg Cap PO 20 mg DAILY REMBERTO Administration Ceftriaxone Sodium 1 gm/ 100 mls @ 200 mls/hr 04/17/20 13:00 04/20/20 12:08 Sodium Chloride IVPB 100 mls 1300 REMBERTO Administration Lactated Ringer's 1,000 mls @ 70 mls/hr 04/19/20 10:45 04/20/20 05:39 Lactated Ringer's IV 1,000 mls .[id number] REMBERTO Administration Insulin Human Regular 100 101 mls @ 0 mls/hr 04/19/20 11:15 04/19/20 12:45 units/ Sodium Chloride IVPB 101 mls INF REMBERTO Administration Protocol As Directed Levothyroxine Sodium 112 mcg 04/17/20 06:00 04/20/20 05:49 Levothyroxine Sodium 112 Mcg Tab PO 112 mcg 0600 REMBERTO Administration Polyethylene Glycol 17 gm 04/20/20 09:00 04/20/20 08:52 Polyethylene Glycol 3350 17 Gm Packet PO 17 gm DAILY REMBERTO Administration Potassium Chloride 20 meq 04/19/20 10:41 04/19/20 17:32 Potassium Chloride 20 Meq/100 Ml Premix Bag IVPB 20 meq PRN PRN Administration K level </= 4.0 Tramadol HCl 50 mg 04/19/20 10:41 04/20/20 10:20 Tramadol Hcl 50 Mg Tab PO 50 mg Q4H PRN Administration Pain - Exam General Appearance: NAD, awake alert Eye: PERRL, anicteric sclera ENT: normocephalic atraumatic, no oropharyngeal lesions Neck: supple, symmetric, no JVD, no thyromegaly Heart: RRR, no murmur, no gallops, no rubs Respiratory: CTAB, no wheezes, no rales, no ronchi Gastrointestinal: soft, non-tender, non-distended, normal bowel sounds, no palpable masses Neurological: cranial nerve grossly intact Psychiatric: normal affect, normal behavior, A&O x 3 Hosp A/P (1) 2-vessel coronary artery disease Code(s): I25.10 - ATHSCL HEART DISEASE OF [place] CORONARY ARTERY W/O ANG PCTRS Status: Acute (2) Chest pain Code(s): R07.9 - CHEST PAIN, UNSPECIFIED Status: Acute Qualifiers: Chest pain type: chest pain due to myocardial ischemia Ischemic chest pain type: unstable angina pectoris Qualified Code(s): I20.0 - Unstable angina Plan: She ended up with two-vessel bypass surgery. She is doing well postop. (3) Hyperlipidemia Code(s): E78.5 - HYPERLIPIDEMIA, UNSPECIFIED Status: Acute Qualifiers: Hyperlipidemia type: mixed hyperlipidemia Qualified Code(s): E78.2 - Mixed hyperlipidemia - Plan plan discussed w/ family 04/18/2020. The patient is planned for CABG in the near future. I will defer to the cardiothoracic surgeons about timing of said procedure. She is completely chest pain-free today. 04/20/2020. The patient underwent two-vessel bypass surgery. She is doing really well. Continue medical therapy. She could probably transition from ICU in the next 24 hours. We will begin the process of mobilization.
[2020-04-20] MEDS: Famotidine 20 MG TAB PO SCH (20:13)
[2020-04-20] MEDS ORDERED: Melatonin 3 MG TAB PO PRN (23:07)
[2020-04-20] MEDS: Atorvastatin Calcium 20 MG TAB PO SCH (23:41)
[2020-04-21 04:19] LABS: #Eosinphils 0.1 thou/uL (0.0-0.7); #Lymphocytes 1.1 thou/uL (1.20-3.40); #Monocytes 0.7 thou/uL (0.11-0.59); %Basophils 0.3 % (0.0-1.0); %Eosinophils 0.9 % (0.0-10.0); %Lymphocytes 13.4 % (21.0-51.0); %Neutrophils 76.3 % (42.0-75.0); Hemoglobin 8.6 g/dL (12.0-16.0); Mean Corpuscular HGB CONC 33.4 g/dL (32.0-36.0); Mean Corpuscular Hemoglobin 30.3 pg (27.0-31.0); Mean Corpuscular Volume 90.7 fL (78.0-98.0); Mean Platelet Volume 8.2 fL (7.4-10.4); Platelet Count 77 thou/uL (130-400); RBC Distribution Width 13.7 % (11.5-14.5); Red Blood Cell (RBC) Count 2.83 mill/uL (4.20-5.40); White Blood Cell (WBC) Count 7.8 thou/uL (4.8-10.8)
[2020-04-21 04:33] LABS: Anion Gap 9 mmol/L (10-20); BUN (Urea Nitrogen) 14 mg/dL (9.8-20.1); Calc. Creatinine Clearance 80 mL/min (70-130); Calcium 7.5 mg/dL (7.8-10.44); Carbon Dioxide 24 mmol/L (23-31); Chloride 110 mmol/L (98-107); Glucose 121 mg/dL (83-110); Potassium 3.6 mmol/L (3.5-5.1); Sodium 139 mmol/L (136-145)
[2020-04-21] MEDS: Levothyroxine Sodium 112 MCG TAB PO SCH (06:33)
[2020-04-21] MEDS: Potassium Chloride 20 MEQ/100 ML PREMIX BAG IVPB PRN (07:30)
[2020-04-21] MEDS: Famotidine 20 MG TAB PO SCH (08:05)
[2020-04-21] MEDS: traMADol HCl 50 MG TAB PO PRN ×2 (08:06→21:20)
[2020-04-21] MEDS: Aspirin Chewable 81 MG TAB PO SCH (08:06)
[2020-04-21] MEDS: FLUoxetine HCl 20 MG CAP PO SCH (08:06)
[2020-04-21] MEDS: Polyethylene Glycol 3350 17 GM Packet PO SCH (08:06)
--- NOTE | 2020-04-21 08:26 | RAD ---
Frontal radiograph chest: 04/21/2020 COMPARISON: 04/20/2020 HISTORY: Evaluate chest following open heart surgery FINDINGS: Stable drainage catheters overlie the mediastinum. Stable right-sided vascular catheter. St able midline sternotomy wires. Mild increased linear interstitial density noted bilaterally, most prominent in the right upper lobe region, stable. Mild airspace disease noted within the left base wi th partial obscuration of the left hemidiaphragm. IMPRESSION: No significant interval change.
[2020-04-21] MEDS ORDERED: Amiodarone 150 MG in Dextrose 5% in Water 100 ML IVPB SCH (09:00)
[2020-04-21] MEDS: Amiodarone 450 MG in Dextrose 5% in Water 250 ML IVPB SCH ×2 (09:36→18:25)
--- NOTE | 2020-04-21 11:38 | PRG ---
DATE OF SERVICE: 04/21/2020 She is now postoperative day #2 from coronary artery bypass grafting to the right and LAD. She is off pressor support today and has had some short runs of atrial fibrillation and was placed on IV amiodarone by Dr. Valdez. Blood pressure has been good and the urine output satisfactory. The chest tube output, it was about 250 for the past 24 hours and I went ahead and removed her chest tubes. She is sitting up in the chair, alert, oriented, wanting to go home. The son states that she may have had some confusion last night, but is not confused this morning. We will see if we can transfer to the telemetry unit to begin physical therapy because she does need to begin walking if we have any consideration to getting her home. Job ID: [id number]
[2020-04-21] MEDS ORDERED: Nitroglycerin 0.4 MG TAB (25 Tab Bottle) SL PRN (12:09)
[2020-04-21] MEDS ORDERED: Mineral Oil ENEMA PR PRN (12:09)
--- NOTE | 2020-04-21 16:48 | PDOC.HOSPP ---
- Subjective Encounter Date: 04/21/20 Encounter Time: 11:00 Subjective: Patient seen and examined for chest pain/coronary artery disease requiring CABG. Doing well. Chest tube DC'd. Sitting on chair. Denies any fever, chest pain or palpitations. Started on amiodarone drip - Objective Vital Signs & Weight: Vital Signs (12 hours) Temp Pulse Pulse Pulse Resp BP BP 04/21/20 15:05 97.6 F 78 16 04/21/20 14:13 62 84 93/45 L 107/59 L 04/21/20 13:22 04/21/20 13:10 04/21/20 13:00 97.6 F 04/21/20 07:45 04/21/20 07:30 98.0 F BP Pulse Ox Pulse Ox Pulse Ox 04/21/20 15:05 116/65 95 04/21/20 14:13 94 L 98 04/21/20 13:22 97 04/21/20 13:10 89 L 04/21/20 13:00 04/21/20 07:45 99 04/21/20 07:30 Weight Admit Weight 129 lb 4.55 oz Weight 147 lb 7.828 oz Most Recent Monitor Data Heart Rate from ECG 78 NIBP 112/71 NIBP BP-Mean 84 Respiration from ECG 26 SpO2 100 I&O: 04/20/20 04/21/20 04/22/20 06:59 06:59 06:59 Intake Total 3743.5 3003 1574 Output Total 1575 785 260 Balance 2168.5 2218 1314 Result Diagrams: 04/21/20 03:45 04/21/20 03:45 Additional Labs: Accuchecks 04/20/20 23:59 POC Glucose 105 H Abnormal Lab Results - Last 48 hrs 04/18/20 11:14: Crossmatch See Detail 04/20/20 03:30: Chloride 112 H, Carbon Dioxide 18 L, Creatinine 0.58 L, Calcium 7.2 L 04/20/20 03:40: WBC 11.0 H, RBC 2.49 L, Hgb 7.8 L, Hct 23.1 L, MCH 31.1 H, Plt Count 81 L, Neutrophils % 85.0 H, Lymphocytes % 6.7 L, Neutrophils # 9.3 H, Lymphocytes # 0.7 L, Monocytes # 0.9 H 04/21/20 03:45: Chloride 110 H, Anion Gap 9 L, Creatinine 0.55 L, Calcium 7.5 L 04/21/20 03:45: RBC 2.83 L, Hgb 8.6 L, Hct 25.7 L, Plt Count 77 L, Neutrophils % 76.3 H, Lymphocytes % 13.4 L, Lymphocytes # 1.1 L, Monocytes # 0.7 H EKG Reviewed by me: Yes (Sinus rhythm on telemetry) Hospitalist ROS - Review of Systems Cardiovascular: denies: chest pain, palpitations, orthopnea, paroxysmal noc. dyspnea, edema, light headedness, other Gastrointestinal: denies: nausea, vomiting, abdominal pain, diarrhea, constipation, melena, hematochezia, other - Medication Medications: Active Medications Generic Name Dose Route Start Last Admin Trade Name Freq PRN Reason Stop Dose Admin Aspirin 81 mg 04/17/20 09:00 04/21/20 08:06 Aspirin Chewable 81 Mg Tab PO 81 mg DAILY REMBERTO Administration Fluoxetine HCl 20 mg 04/20/20 09:00 04/21/20 08:06 Fluoxetine Hcl 20 Mg Cap PO 20 mg DAILY REMBERTO Administration Amiodarone HCl 450 mg/ 259 mls @ 0 mls/hr 04/21/20 09:00 04/21/20 09:36 Dextrose/Water IVPB 259 mls INF REMBERTO Administration Protocol Per Protocol Levothyroxine Sodium 112 mcg 04/17/20 06:00 04/21/20 06:33 Levothyroxine Sodium 112 Mcg Tab PO 112 mcg 0600 REMBERTO Administration Polyethylene Glycol 17 gm 04/20/20 09:00 04/21/20 08:06 Polyethylene Glycol 3350 17 Gm Packet PO 17 gm DAILY REMBERTO Administration Tramadol HCl 50 mg 04/19/20 10:41 04/21/20 08:06 Tramadol Hcl 50 Mg Tab PO 50 mg Q4H PRN Administration Pain - Exam General Appearance: awake alert Neck: supple, no JVD Heart: RRR, no gallops Respiratory: no wheezes, no rales Gastrointestinal: soft, non-distended, no guarding, no rigidity Extremities: no cyanosis Neurological: no new deficit Psychiatric: A&O x 3 Hosp A/P - Plan DVT proph w/SCDs Patient is a 85-year-old female with coronary artery disease, hypertension and hyperlipidemia presented to the hospital on 04/16 with chest discomfort that has been ongoing for last 2 weeks. Please refer to the history and physical dated 04/16 for further details. The patient was admitted to the hospital with a diagnosis chest discomfort rule out acute coronary syndrome. She underwent a Cardiolite stress test on 04/17 that showed no evidence of acute ischemia. Ejection fraction was normal. Jair aldrich was evaluated by cardiology Dr. Garnett. Due to on and off chest discomfort she underwent cardiac catheterization that was consistent with coronary artery disease requiring coronary artery bypass grafting. She underwent above surgery on 04/19. Postoperatively she was monitored in the intensive care unit. She was transferred to telemetry unit on 04/21. Due to intermittent tachyarrhythmia post CABG she was started on amiodarone drip. Impression: Unstable angina/coronary artery disease requiring coronary artery bypass grafting Hypertension Hyperlipidemia Anxiety Hypothyroidism History of Crohn's disease Abnormal TSH Plan: Continue supportive care. Patient was started on amiodarone drip. Transfer to telemetry. Continue Lasix. Will reduce levothyroxine dose due to low TSH. Repeat TSH as outpatient is recommended. Continue potassium supplementation. Pain control. Start beta-blockers and YISSEL inhibitor once blood pressure better controlled
[2020-04-21] MEDS: Docusate 100 MG CAP PO SCH (20:44)
[2020-04-22] MEDS: Levothyroxine Sodium 75 MCG TAB PO SCH (06:47)
[2020-04-22] MEDS ORDERED: Sodium Chloride 0.9% 10 ML ONE (09:03)
[2020-04-22] MEDS: FLUoxetine HCl 20 MG CAP PO SCH (10:32)
[2020-04-22] MEDS: Docusate 100 MG CAP PO SCH ×2 (10:32→21:29)
[2020-04-22] MEDS: Potassium Chloride 10 MEQ TAB PO SCH (10:32)
[2020-04-22] MEDS: Aspirin Chewable 81 MG TAB PO SCH (10:33)
[2020-04-22] MEDS: Furosemide 40 MG TAB PO SCH (10:33)
[2020-04-22] MEDS: Amiodarone 450 MG in Dextrose 5% in Water 250 ML IVPB SCH (10:33)
[2020-04-22] MEDS: Polyethylene Glycol 3350 17 GM Packet PO SCH (10:36)
[2020-04-22] MEDS ORDERED: Amiodarone 200 MG TAB PO SCH (13:30)
[2020-04-22] MEDS: Amiodarone 200 MG TAB PO SCH (21:29)
[2020-04-22] MEDS: Melatonin 3 MG TAB PO PRN (21:30)
[2020-04-22] MEDS: traMADol HCl 50 MG TAB PO PRN (21:30)
[2020-04-23] MEDS: traMADol HCl 50 MG TAB PO PRN (05:17)
[2020-04-23] MEDS: Levothyroxine Sodium 75 MCG TAB PO SCH (05:17)
[2020-04-23] MEDS: Polyethylene Glycol 3350 17 GM Packet PO SCH (09:14)
[2020-04-23] MEDS: Furosemide 40 MG TAB PO SCH (09:14)
[2020-04-23] MEDS: FLUoxetine HCl 20 MG CAP PO SCH (09:14)
[2020-04-23] MEDS: Potassium Chloride 10 MEQ TAB PO SCH (09:14)
[2020-04-23] MEDS: Aspirin Chewable 81 MG TAB PO SCH (09:14)
[2020-04-23] MEDS: Docusate 100 MG CAP PO SCH ×2 (09:14→20:39)
[2020-04-23] MEDS: Amiodarone 200 MG TAB PO SCH ×2 (09:14→20:39)
--- NOTE | 2020-04-23 09:47 | PRG ---
DATE OF SERVICE: 04/23/2020 SUBJECTIVE: Ms. Villagomez says she does not feel well overall, but she is improving. She has no chest pain or pressure, just does not have any energy. OBJECTIVE: VITAL SIGNS: Blood pressure 132/61, pulse 70. LUNGS: Clear. CARDIAC: Normal S1, normal S2. ABDOMEN: Soft, nontender. EXTREMITIES: Reveal no edema. ASSESSMENT: 1. Status post bypass surgery. 2. Postoperative atrial fibrillation, now in sinus rhythm. 3. Constipated. PLAN: 1. We will go ahead and reduce the amiodarone dose. 2. Add beta blockers. 3. Increase activity level. 4. Receiving medications for constipation. We will see if she is ready to go home tomorrow. She needs looks like 1 or 2 days to get better. Job ID: [id number]
--- NOTE | 2020-04-23 10:55 | PDOC.HOSPP ---
- Subjective Encounter Date: 04/22/20 Encounter Time: 10:00 Subjective: Patient seen and examined for chest pain/coronary artery disease. Doing well. Denies any chest pain or palpitations. - Objective Vital Signs & Weight: Vital Signs (12 hours) Temp Pulse Pulse Pulse Resp BP BP 04/23/20 09:27 86 79 145/67 H 143/65 H 04/23/20 08:00 98.2 F 76 16 04/23/20 05:20 04/23/20 04:00 71 16 04/23/20 00:00 76 16 BP BP Pulse Ox 04/23/20 09:27 04/23/20 08:00 143/65 H 95 04/23/20 05:20 94 L 04/23/20 04:00 132/63 94 L 04/23/20 00:00 119/59 L Weight Admit Weight 129 lb 4.55 oz Weight 150 lb 9.211 oz Most Recent Monitor Data Heart Rate from ECG 78 NIBP 112/71 NIBP BP-Mean 84 Respiration from ECG 26 SpO2 100 I&O: 04/22/20 04/23/20 04/24/20 06:59 06:59 06:59 Intake Total 2147.85 1425 Output Total 860 2200 Balance 1287.85 -775 Result Diagrams: 04/21/20 03:45 04/21/20 03:45 Additional Labs: Accuchecks 04/20/20 04/20/20 20:12 15:55 POC Glucose 98 105 H EKG Reviewed by me: Yes (Sinus rhythm on telemetry) Hospitalist ROS - Review of Systems Cardiovascular: denies: chest pain, palpitations, orthopnea, paroxysmal noc. dyspnea, edema, light headedness, other Gastrointestinal: denies: nausea, vomiting, abdominal pain, diarrhea, constipa tion, melena, hematochezia, other - Medication Medications: Active Medications Generic Name Dose Route Start Last Admin Trade Name Freq PRN Reason Stop Dose Admin Aspirin 81 mg 04/17/20 09:00 04/23/20 09:14 Aspirin Chewable 81 Mg Tab PO 81 mg DAILY REMBERTO Administration Docusate Sodium 100 mg 04/21/20 21:00 04/23/20 09:14 Docusate 100 Mg Cap PO 100 mg BID REMBERTO Administration Fluoxetine HCl 20 mg 04/20/20 09:00 04/23/20 09:14 Fluoxetine Hcl 20 Mg Cap PO 20 mg DAILY REMBERTO Administration Furosemide 40 mg 04/22/20 09:00 04/23/20 09:14 Furosemide 40 Mg Tab PO 40 mg DAILY REMBERTO Administration Levothyroxine Sodium 75 mcg 04/22/20 06:00 04/23/20 05:17 Levothyroxine Sodium 75 Mcg Tab PO 75 mcg 0600 REMBERTO Administration Melatonin 6 mg 04/21/20 14:02 04/22/20 21:30 Melatonin 3 Mg Tab PO 6 mg HSPRN PRN Administration Insomnia Metoprolol Succinate 25 mg 04/23/20 09:00 04/23/20 09:49 Metoprolol Succinate Xl 25 Mg Tab PO 25 mg DAILY REMBERTO Administration Polyethylene Glycol 17 gm 04/20/20 09:00 04/23/20 09:14 Polyethylene Glycol 3350 17 Gm Packet PO 17 gm DAILY REMBERTO Administration Potassium Chloride 10 meq 04/22/20 08:00 04/23/20 09:14 Potassium Chloride 10 Meq Tab PO 10 meq QAM-WM REMBERTO Administration Sodium Chloride 10 ml 04/22/20 21:00 04/23/20 09:14 Flush - Normal Saline 10 Ml Syringe IVF 10 ml Q12HR REMBERTO Administration Tramadol HCl 50 mg 04/19/20 10:41 04/23/20 05:17 Tramadol Hcl 50 Mg Tab PO 50 mg Q4H PRN Administration Pain - Exam General Appearance: NAD Heart: RRR, no gallops Respiratory: no wheezes, no rales Gastrointestinal: soft, non-distended Extremities: no cyanosis, no clubbing Neurological: no new deficit Hosp A/P - Plan DVT proph w/SCDs Patient is a 85-year-old female with coronary artery disease, hypertension and hyperlipidemia presented to the hospital on 04/16 with chest discomfort that has been ongoing for last 2 weeks. Please refer to the history and physical dated 04/16 for further details. The patient was admitted to the hospital with a diagnosis chest discomfort rule out acute coronary syndrome. She underwent a Cardiolite stress test on 04/17 that showed no evidence of acute ischemia. Ejection fraction was normal. Patient was evaluated by cardiology Dr. Garnett. Due to on and off chest discomfort she underwent cardiac catheterization that was consistent with coronary artery disease requiring coronary artery bypass grafting. She underwent above surgery on 04/19. Postoperatively she was monitored in the intensive care unit. She was transferred to telemetry unit on 04/21. Due to intermittent tachyarrhythmia post CABG she was started on amiodarone drip. Impression: Unstable angina/coronary artery disease requiring coronary artery bypass grafting Hypertension Hyperlipidemia Anxiety Hypothyroidism History of Crohn's disease Abnormal TSH Plan: Continue post CABG care. Continue aspirin with statins. Continue amiodarone. Home medication of levothyroxine is 88 mcg. Continue other medications as above. Continue cardiac rehab.
[2020-04-23] MEDS ORDERED: Potassium Chloride 20 MEQ TAB PO SCH (12:00)
--- NOTE | 2020-04-23 14:06 | PRG ---
DATE OF SERVICE: 04/23/2020 The patient is afebrile, stable vital signs. She is currently in the bathroom and has ambulated twice today with physical therapy. Tentative plan is discharge tomorrow or Thursday depending on how she is progressing. Job ID: [id number] MTDD
[2020-04-23 14:14] VITALS: BMI 25.0
[2020-04-23] MEDS: Melatonin 3 MG TAB PO PRN (20:39)
--- NOTE | 2020-04-23 22:50 | PDOC.HOSPP ---
- Subjective Encounter Date: 04/23/20 Encounter Time: 08:30 Subjective: Patient seen and examined for chest pain/coronary artery disease. Denies any new complaints. No new chest pain or palpitations. - Objective Vital Signs & Weight: Vital Signs (12 hours) Temp Pulse Pulse Pulse Resp BP BP 04/23/20 19:20 98.7 F 67 16 04/23/20 15:16 98.7 F 78 16 04/23/20 13:09 73 77 160/63 H 124/58 L 04/23/20 11:38 97.4 F L 65 16 BP BP Pulse Ox 04/23/20 19:20 142/67 H 98 04/23/20 15:16 126/96 H 95 04/23/20 13:09 04/23/20 11:38 106/56 L 95 Weight Admit Weight 129 lb 4.55 oz Weight 150 lb 9.211 oz Most Recent Monitor Data Heart Rate from ECG 78 NIBP 112/71 NIBP BP-Mean 84 Respiration from ECG 26 SpO2 100 I&O: 04/22/20 04/23/20 04/24/20 06:59 06:59 06:59 Intake Total 2147.85 1425 Output Total 860 2200 900 Balance 1287.85 -775 -900 Result Diagrams: 04/21/20 03:45 04/21/20 03:45 Additional Labs: Accuchecks 04/20/20 04/20/20 20:12 15:55 POC Glucose 98 105 H EKG Reviewed by me: Yes (Sinus rhythm on telemetry) Hospitalist ROS - Review of Systems Respiratory: denies: cough, dry, shortness of breath, hemoptysis, SOB with excertion, pleuritic pain, sputum, wheezing, other Cardiovascular: denies: chest pain, palpitations, orthopnea, paroxysmal noc. dyspnea, edema, light headedness, other - Medication Medications: Active Medications Generic Name Dose Route Start Last Admin Trade Name Freq PRN Reason Stop Dose Admin Amiodarone HCl 200 mg 04/23/20 21:00 04/23/20 20:39 Amiodarone 200 Mg Tab PO 200 mg BID REMBERTO Administration Aspirin 81 mg 04/17/20 09:00 04/23/20 09:14 Aspirin Chewable 81 Mg Tab PO 81 mg DAILY REMBERTO Administration Docusate Sodium 100 mg 04/21/20 21:00 04/23/20 20:39 Docusate 100 Mg Cap PO Not Given BID REMBERTO Fluoxetine HCl 20 mg 04/20/20 09:00 04/23/20 09:14 Fluoxetine Hcl 20 Mg Cap PO 20 mg DAILY REMBERTO Administration Furosemide 40 mg 04/22/20 09:00 04/23/20 09:14 Furosemide 40 Mg Tab PO 40 mg DAILY REMBERTO Administration Levothyroxine Sodium 75 mcg 04/22/20 06:00 04/23/20 05:17 Levothyroxine Sodium 75 Mcg Tab PO 75 mcg 0600 REMBERTO Administration Melatonin 6 mg 04/21/20 14:02 04/23/20 20:39 Melatonin 3 Mg Tab PO 6 mg HSPRN PRN Administration Insomnia Metoprolol Succinate 25 mg 04/23/20 09:00 04/23/20 09:49 Metoprolol Succinate Xl 25 Mg Tab PO 25 mg DAILY REMBERTO Administration Polyethylene Glycol 17 gm 04/20/20 09:00 04/23/20 09:14 Polyethylene Glycol 3350 17 Gm Packet PO 17 gm DAILY REMBERTO Administration Potassium Chloride 10 meq 04/22/20 08:00 04/23/20 09:14 Potassium Chloride 10 Meq Tab PO 10 meq QAM-WM REMBERTO Administration Sodium Chloride 10 ml 04/22/20 21:00 04/23/20 20:40 Flush - Normal Saline 10 Ml Syringe IVF 10 ml Q12HR REMBERTO Administration Tramadol HCl 50 mg 04/19/20 10:41 04/23/20 05:17 Tramadol Hcl 50 Mg Tab PO 50 mg Q4H PRN Administration Pain - Exam General Appearance: NAD Neck: supple, no JVD Heart: RRR, no gallops Respiratory: no wheezes, no ronchi Gastrointestinal: soft, non-tender, normal bowel sounds Extremities: no cyanosis Neurological: no new deficit Psychiatric: A&O x 3 Hosp A/P - Plan DVT proph w/SCDs Patient is a 85-year-old female with coronary artery disease, hypertension and hyperlipidemia presented to the hospital on 04/16 with chest discomfort that has been ongoing for last 2 weeks. Please refer to the history and physical dated 04/16 for further details. The patient was admitted to the hospital with a diagnosis chest discomfort rule out acute coronary syndrome. She underwent a Cardiolite stress test on 04/17 that showed no evidence of acute ischemia. Ejection fraction was normal. Patient was evaluated by cardiology Dr. Garnett. Due to on and off chest discomfort she underwent cardiac catheterization that was consistent with coronary artery disease requiring coronary artery bypass grafting. She underwent above surgery on 04/19. Postoperatively she was monitored in the intensive care unit. She was transferred to telemetry unit on 04/21. Due to intermittent tachyarrhythmia post CABG she was started on amiodarone drip. Impression: Unstable angina/coronary artery disease requiring coronary artery bypass grafting Hypertension Hyperlipidemia Anxiety Hypothyroidism History of Crohn's disease Abnormal TSHLevothyroxine dose reduced Plan: Continue supportive care. Continue aspirin. Amiodarone dose reduced today. Continue Lasix. Continue levothyroxine. Toprol started. Continue other medications as above. Continue cardiac rehab. A.m. labs
[2020-04-23] MEDS ORDERED: Electrolyte Replacement Protocol 1 EACH FS PRN (23:00)
[2020-04-24 04:47] LABS: #Basophils 0.1 thou/uL (0.0-0.2); #Eosinphils 0.2 thou/uL (0.0-0.7); #Lymphocytes 1.8 thou/uL (1.20-3.40); #Monocytes 0.9 thou/uL (0.11-0.59); #Neutrophils 5.9 thou/uL (1.40-6.50); %Basophils 0.7 % (0.0-1.0); %Eosinophils 2.6 % (0.0-10.0); %Lymphocytes 19.7 % (21.0-51.0); %Monocytes 10.2 % (0.0-10.0); %Neutrophils 66.7 % (42.0-75.0); Hemoglobin 9.5 g/dL (12.0-16.0); Mean Corpuscular HGB CONC 34.1 g/dL (32.0-36.0); Mean Corpuscular Hemoglobin 31.2 pg (27.0-31.0); Mean Corpuscular Volume 91.5 fL (78.0-98.0); Mean Platelet Volume 8.1 fL (7.4-10.4); Platelet Count 162 thou/uL (130-400); RBC Distribution Width 13.5 % (11.5-14.5); Red Blood Cell (RBC) Count 3.03 mill/uL (4.20-5.40); White Blood Cell (WBC) Count 8.9 thou/uL (4.8-10.8)
[2020-04-24 05:12] LABS: Anion Gap 11 mmol/L (10-20); BUN (Urea Nitrogen) 8 mg/dL (9.8-20.1); Calc. Creatinine Clearance 85 mL/min (70-130); Calcium 7.9 mg/dL (7.8-10.44); Carbon Dioxide 28 mmol/L (23-31); Chloride 102 mmol/L (98-107); Glucose 90 mg/dL (83-110); Magnesium 1.6 mg/dL (1.6-2.6); Sodium 137 mmol/L (136-145)
[2020-04-24] MEDS: Levothyroxine Sodium 75 MCG TAB PO SCH (05:17)
[2020-04-24] MEDS ORDERED: Magnesium 2 GM/50 ML 2 GM in Premix Bag 1 BAG IVPB SCH (06:30)
[2020-04-24] MEDS: Polyethylene Glycol 3350 17 GM Packet PO SCH (08:30)
[2020-04-24] MEDS: Potassium Chloride 10 MEQ TAB PO SCH (08:30)
[2020-04-24] MEDS: Amiodarone 200 MG TAB PO SCH (08:30)
[2020-04-24] MEDS: Aspirin Chewable 81 MG TAB PO SCH (08:30)
[2020-04-24] MEDS: Furosemide 40 MG TAB PO SCH (08:30)
[2020-04-24] MEDS: Docusate 100 MG CAP PO SCH (08:31)
[2020-04-24] MEDS: FLUoxetine HCl 20 MG CAP PO SCH (08:31)
[2020-04-24] MEDS ORDERED: traMADol HCl 50 MG TAB PO PRN ×2 (10:25→12:10)
[2020-04-24 12:03] VITALS: BP 119/63; TEMP 97.5
--- NOTE | 2020-04-25 09:56 | DIS ---
DATE OF ADMISSION: 04/16/2020 DATE OF DISCHARGE: 04/24/2020 This is an 85-year-old female admitted on April 16 through the emergency room with a history of Crohn's disease, hypertension, dyslipidemia, and a prior carotid surgery. She had increasingly frequent episodes of chest pain that prompted admission and a stress test was done, which showed normal EF and no evidence of acute ischemia. Dr. Garnett proceeded to take her for cardiac catheterization, which revealed significant and severe coronary artery disease and she underwent bypass grafting with [id number] to an LAD and a saphenous vein to a critically-narrowed right coronary artery with both of these vessels being heavily calcified preventing angioplasty attempts. Postoperatively, she had some brief runs of SVT or atrial fibrillation, but overall had an unremarkable postop course, although her weight was elevated compared to admission. She will be discharged home and follow up with me in about 2 weeks. Job ID: [id number]
[2020-05-01 13:43] LABS: Actual Bicarbonate (HCO3a) 19.2 mEq/L (22-28); Analyzer IN Cardio OR; Base Excess (BEa) -4.3 mEq/L (-2.0 to +3.0); CO2 Tension 29.6 mmHg (35.0-45.0); Calcium, Ionized (arterial) 1.08 mmol/L (1.12-1.30); Hemoglobin (Hb) 9.8 g/dL (12.0-16.0); Potassium - ABG Lab 3.14 mmol/L (3.70-5.30); pH, Arterial 7.43 (7.35-7.45)
[2020-05-01 13:44] LABS: Analyzer IN Cardio OR; CO2 Tension 32.4 mmHg (35.0-45.0); Calcium, Ionized (arterial) 1.05 mmol/L (1.12-1.30); Carboxyhemoglobin (COHb) 0.2 gm% (0.0-3.0); Hemoglobin (Hb) 9.5 g/dL (12.0-16.0); Potassium - ABG Lab 3.19 mmol/L (3.70-5.30); pH, Arterial 7.41 (7.35-7.45)
[2020-05-01 13:44] LABS: Actual Bicarbonate (HCO3a) 24.7 mEq/L (22-28); Analyzer IN Cardio OR; Base Excess (BEa) 3.4 mEq/L (-2.0 to +3.0); Calcium, Ionized (arterial) 0.73 mmol/L (1.12-1.30); Carboxyhemoglobin (COHb) 0.9 gm% (0.0-3.0); Hemoglobin (Hb) 7.3 g/dL (12.0-16.0); O2 Tension (PaO2), arterial 474.8 mmHg (> 60.0); Potassium - ABG Lab 3.72 mmol/L (3.70-5.30)
[2020-05-01 13:44] LABS: Actual Bicarbonate (HCO3a) 23.2 mEq/L (22-28); Analyzer IN Cardio OR; CO2 Tension 31.6 mmHg (35.0-45.0); Calcium, Ionized (arterial) 0.91 mmol/L (1.12-1.30); Carboxyhemoglobin (COHb) 0.8 gm% (0.0-3.0); Hemoglobin (Hb) 8.1 g/dL (12.0-16.0); O2 Tension (PaO2), arterial 313.1 mmHg (> 60.0); Potassium - ABG Lab 4.08 mmol/L (3.70-5.30); pH, Arterial 7.48 (7.35-7.45)
[2020-05-01 13:45] LABS: Actual Bicarbonate (HCO3a) 22.5 mEq/L (22-28); Analyzer IN Cardio OR; Base Excess (BEa) -3.9 mEq/L (-2.0 to +3.0); CO2 Tension 46.3 mmHg (35.0-45.0); Calcium, Ionized (arterial) 0.99 mmol/L (1.12-1.30); Carboxyhemoglobin (COHb) 0.6 gm% (0.0-3.0); Hemoglobin (Hb) 11.9 g/dL (12.0-16.0); O2 Tension (PaO2), arterial 413.6 mmHg (> 60.0); Potassium - ABG Lab 3.37 mmol/L (3.70-5.30); pH, Arterial 7.31 (7.35-7.45)
[2020-05-01 13:45] LABS: Actual Bicarbonate (HCO3a) 21.2 mEq/L (22-28); Analyzer IN Cardio OR; Base Excess (BEa) -2.8 mEq/L (-2.0 to +3.0); CO2 Tension 33.5 mmHg (35.0-45.0); Calcium, Ionized (arterial) 0.94 mmol/L (1.12-1.30); Carboxyhemoglobin (COHb) 0.5 gm% (0.0-3.0); Hemoglobin (Hb) 8.4 g/dL (12.0-16.0); O2 Tension (PaO2), arterial 474.4 mmHg (> 60.0); Potassium - ABG Lab 3.39 mmol/L (3.70-5.30); pH, Arterial 7.42 (7.35-7.45)
[2020-05-01 14:05] LABS: O2 Tension (PaO2), arterial 521.4 mmHg (> 60.0); Puncture Site Arterial Line
[2020-05-01 14:06] LABS: O2 Tension (PaO2), arterial 561.1 mmHg (> 60.0); Puncture Site Arterial Line
[2020-05-01 14:07] LABS: Puncture Site Arterial Line; pH, Arterial 7.61 (7.35-7.45)
[2020-05-01 14:08] LABS: Puncture Site Arterial Line
[2020-05-01 14:08] LABS: Puncture Site Arterial Line
[2020-05-01 14:08] LABS: Puncture Site Arterial Line
== END 2020-04-24 15:58 | disposition home or self-care (01) | DRG 234 ==
LOC: ERS 12:20 → ERHOLD 15:08 → 2NO 20:35 → CCU 04-19 08:38 → IMCU/EMU 04-19 11:31 → 2NO 04-21 15:00 → CCU 04-21 15:08
PROVIDERS: ADMIT Internal Medicine; ATTEND Internal Medicine
PROC: B2111ZZ Fluoroscopy of Multiple Coronary Arteries using Low Osmolar Contrast (ICD-10-PCS; 2020-04-18)
PROC: B2151ZZ Fluoroscopy of Left Heart using Low Osmolar Contrast (ICD-10-PCS; 2020-04-18)
PROC: 4A023N7 Measurement of Cardiac Sampling and Pressure, Left Heart, Percutaneous Approach (ICD-10-PCS; 2020-04-18)
PROC: 02100Z9 Bypass Coronary Artery, One Artery from Left Internal Mammary, Open Approach (ICD-10-PCS; principal; 2020-04-19)
PROC: 021009W Bypass Coronary Artery, One Artery from Aorta with Autologous Venous Tissue, Open Approach (ICD-10-PCS; 2020-04-19)
PROC: 06BQ0ZZ Excision of Left Saphenous Vein, Open Approach (ICD-10-PCS; 2020-04-19)
PROC: 5A1221Z Performance of Cardiac Output, Continuous (ICD-10-PCS; 2020-04-19)
PROC: 30233N1 Transfusion of Nonautologous Red Blood Cells into Peripheral Vein, Percutaneous Approach (ICD-10-PCS; 2020-04-19)
DX: I25.110 Atherosclerotic heart disease of native coronary artery with unstable angina pectoris (principal); K50.90 Crohn's disease, unspecified, without complications; I50.32 Chronic diastolic (congestive) heart failure; E78.5 Hyperlipidemia, unspecified; Z96.651 Presence of right artificial knee joint; E89.0 Postprocedural hypothyroidism; Z66 Do not resuscitate; E78.2 Mixed hyperlipidemia; I11.0 Hypertensive heart disease with heart failure; D64.9 Anemia, unspecified; F41.9 Anxiety disorder, unspecified; F32.9 Major depressive disorder, single episode, unspecified; Z90.49 Acquired absence of other specified parts of digestive tract; Z90.710 Acquired absence of both cervix and uterus; Z79.82 Long term (current) use of aspirin; Z79.890 Hormone replacement therapy; Z79.899 Other long term (current) drug therapy; Z95.5 Presence of coronary angioplasty implant and graft; Z98.890 Other specified postprocedural states; K59.00 Constipation, unspecified; I48.91 Unspecified atrial fibrillation; Z20.822 Contact with and (suspected) exposure to COVID-19; D69.6 Thrombocytopenia, unspecified
CPT/HCPCS: 36415; 36416; 36430; 71045; 76942; 78452; 80048; 80053; 80061; 81003; 81015; 82550; 82805; 82947; 83690; 83735; 83880; 84443; 84484; 85025; 85610; 85730; 86850; 86900; 86901; 87635; 93005; 93010; 93017; 93458; 93798; 94760; 96374; 97139; A9500; J0153; J0282; J0690; J0696; J1100; J1642; J1644; J1650; J1815; J1885; J1940; J2001; J2150; J2250; J2405; J2440; J2704; J2720; J3010; J3370; J3475; J3480; J3490; J7070; P9016; P9045; Q9967; S0017; S0028; U0003; U0005

== ENCOUNTER 2022-04-24 12:00 | Outpatient (CLI) | payer MEDICARE | END 2022-04-24 12:01 | disposition home or self-care (01) | LOC: BICMAMMO 12:00 | PROVIDERS: ATTEND Internal Medicine | DX: Z12.31 Encounter for screening mammogram for malignant neoplasm of breast (principal) | CPT/HCPCS: 77063; 77067 ==

== ENCOUNTER 2024-12-21 21:08 | Emergency (ER) | payer OTHER ==
[2024-12-21 21:31] LABS: #Basophils 0.04 10x3/uL (0.0-0.2); #Eosinophils 0.07 10x3/uL (0.0-0.7); #Monocytes 0.77 10x3/uL (0.11-0.59); #Neutrophils 5.89 10x3/uL (1.40-6.50); %Basophils 0.5 % (0.0-1.0); %Eosinophils 0.8 % (0.0-10.0); %Lymphocytes 19.3 % (21.0-51.0); %Monocytes 9.1 % (0.0-10.0); %Neutrophils 69.9 % (42.0-75.0); Hematocrit 41.1 % (36.0-47.0); Hemoglobin 13.0 g/dL (12.0-16.0); Mean Corpuscular Hemoglobin 28.4 pg (27.0-31.0); Mean Corpuscular Volume 89.9 fL (78.0-98.0); Platelet Count 212 10x3/uL (130-400); Red Blood Cell (RBC) Count 4.57 mill/uL (4.20-5.40); White Blood Cell (WBC) Count 8.43 10x3/uL (4.8-10.8)
[2024-12-21 21:46] LABS: ALT (SGPT) Less than 7 U/L (Less than 34); AST (SGOT) 20 U/L (11-34); Albumin 3.1 g/dL (3.1-4.5); Alkaline Phosphatase 94 U/L (40-110); Anion Gap 18 mmol/L (10-20); BUN (Urea Nitrogen) 10 mg/dL (9.8-20.1); Bilirubin, Total 0.7 mg/dL (0.3-1.2); Calc. Creatinine Clearance 0 mL/min (70-130); Calcium 8.7 mg/dL (7.8-10.44); Carbon Dioxide 28 mmol/L (23-31); Chloride 97 mmol/L (98-107); Globulin 3.9 g/dL (2.4-3.5); Glucose 121 mg/dL (83-110); Potassium 3.0 mmol/L (3.5-5.1); Sodium 140 mmol/L (136-145)
[2024-12-21] MEDS ORDERED: Potassium Chloride 20 MEQ (100 mL) BAG ONE (22:35)
[2024-12-21 23:47] LABS: Bacteria/HPF None Seen HPF (None Seen); CAUTI Indications for Culture Alt mental st,lethar; Glucose, Urine (Dipstick) Normal (Negative); Leukocyte Negative Leu/uL (Negative); Protein, Urine (Dipstick) Negative (Neg-Trace); RBC/HPF 0-3 HPF (0-3); Specific Gravity, Urine 1.009 (1.002-1.036); WBC/HPF None Seen HPF (0-3)
[2024-12-21 23:59] LABS: Urine Culture Reflex No No
== END 2024-12-22 02:10 | disposition home or self-care (01) ==
LOC: ERS 21:08
DX: R41.82 Altered mental status, unspecified (principal); F03.90 Unspecified dementia, unspecified severity, without behavioral disturbance, psychotic disturbance, mood disturbance, and anxiety; E87.6 Hypokalemia; R29.701 NIHSS score 1; I10 Essential (primary) hypertension; E03.9 Hypothyroidism, unspecified; Z75.3 Unavailability and inaccessibility of health-care facilities; Z79.899 Other long term (current) drug therapy; Z79.890 Hormone replacement therapy
CPT/HCPCS: 70450; 71045; 80053; 81001; 84484; 85025; 93005; 96365; 96366; 99285; J3480